=== PATIENT | male | born 1945 | race Caucasian/White ===

== ENCOUNTER 2019-01-12 15:29 | Inpatient (IN) | payer OTHER ==
[~2019-01-12] VITALS: Ht 180.3 cm; Wt 81.1 kg
--- NOTE | ~2019-01-12 | CON ---
[facility] [address] [place] [address] CONSULTATION Name: RODRIGUEZ HERNANDEZ Room: [address] IN [facility]#: [id number] Admission: 01/12/19 Attend Phys: Cee Garcia Discharge: 01/15/19 Date of : 41 Report #: [id number] THIS REPORT FOR: //name// CC: Massimo Dacosta DATE OF SERVICE: 01/14/2019 REQUESTING PHYSICIAN: Brenden Sosa MD REASON FOR CONSULTATION: Acute kidney injury. HISTORY OF PRESENT ILLNESS: The patient is a very pleasant 73-year-old gentleman presented to the hospital with complaints of having dry heaves, unable to eat and drink anything down for the last several days. In the Emergency Room, he was found to be hypotensive with blood pressure in 80s systolic. He also was found to be in acute kidney injury. His serum creatinine was 3.4. He was given IV fluids and creatinine is much better now down to 1.0 today. Serum sodium on admission was 131, it is 140 now, potassium is normal. His white count was 12.0, down to 9.9 thousands now. Urinalysis was unremarkable. PAST MEDICAL HISTORY: Significant for hypertension. MEDICATIONS: He is taking lisinopril at home. PAST SURGICAL HISTORY: Also, he has a history of prostate surgery, back problem and sinus surgery. FAMILY HISTORY: Noncontributory. SOCIAL HISTORY: He does not smoke cigarettes, does not drink alcohol. REVIEW OF SYSTEMS: Positive for being weak and he got dry heaves. Today, he feels much better. He is able to drink and keeping his food and drink down. He does not have any dysuria. No fever, no chills, no shortness of breath. He is not depressed. No change in visual or hearing acuity. Rest of systems reviewed and negative. PHYSICAL EXAMINATION: GENERAL: He is awake, alert, and oriented. VITAL SIGNS: Blood pressure now is 143/61, heart rate 63, afebrile. HEENT: Pupils are round. NECK: Supple. LUNGS: Clear. CARDIOVASCULAR: Regular rate. ABDOMEN: [place] [address] CONSULTATION Name: RODRIGUEZ HERNANDEZ Room: [address]#: [id number] Admission: 01/12/19 Attend Phys: Cee Garcia Discharge: 01/15/19 Date of : 41 Report #: [id number] LOWER EXTREMITIES: No edema. ASSESSMENT: 1. Acute kidney injury due to volume depletion. 2. History of hypertension. The patient was hypotensive on admission. 3. Dry heave, unable to keep fluids down, which resolved now. PLAN: The patient's renal function returning back to normal. From my standpoint, he is doing very well. I will sign off. By: [id number] rachael Virk
[~2019-01-12 15:29] MED LIST: AUGMENTIN; ENDOCET 10-3251 EACH PO; HYDROCODON-ACE1 EACH; KEFLEX500 MG; MOBIC7.5 M1 PO; PERCOCET 5-3251 EACH PO; PRILOSEC 10MG C10 M1; ROBAXIN 750 MG750 MG PO; ZESTRIL10 MG
[2019-01-12 15:30] VITALS: BP 116/54
[2019-01-12] MEDS ORDERED: ASPIR 8181 MG PO (15:41)
[2019-01-12 15:52] LABS: ABSOLUTE BASOPHILS 0.1 thou/uL (0.0-0.2); ABSOLUTE LYMPHOCYTES 2.2 thou/uL (0.8-5.3); ABSOLUTE MONOCYTES 0.7 thou/uL (0.0-1.2); BASOPHILS 0.6 %; EOSINOPHILS 0.4 %; HEMATOCRIT 40.5 % (42.0-52.0); HEMOGLOBIN 13.5 gm/dL (14.0-18.0); MCH 27.6 pg (26.0-34.0); MCHC 33.3 g/dL (28.0-37.0); MCV 82.9 fL (80.0-100.0); MPV 8.8 fl. (7.2-11.1); NUCLEATED RBCS 0 /100WBC; PLATELET COUNT* 240 thou/uL (150-400); RBC 4.89 mil/uL (4.50-6.00); RDW-CV 15.3 % (10.5-14.5)
[2019-01-12 16:00] LABS: CALCIUM 8.7 mg/dL (8.5-10.1); CREATININE 3.4 mg/dL (0.6-1.3)
[2019-01-12 16:01] LABS: POTASSIUM 2.9 mmol/L (3.5-5.1)
[2019-01-12 16:05] LABS: ALBUMIN 3.9 g/dL (3.4-5.0); TOTAL BILIRUBIN 0.8 mg/dL (<0.1-1.0); TOTAL PROTEIN 7.1 g/dL (6.4-8.2)
[2019-01-12 19:00] VITALS: BP 129/63
[2019-01-12 19:30] VITALS: BP 131/69
[2019-01-13] VITALS: BP 108/59
[2019-01-13 04:00] VITALS: BP 129/66
--- NOTE | 2019-01-13 06:12 | NUR ---
PATIENT ARRIVED ON FLOOR FROM ER A LITTLE BEFORE SHIFT. PATIENT ADMISSION HISTORY AND ASSESSMENT WAS COMPLETED CHARTED. IV FLUIDS ARE INFUSING AT 100 ML/HR. PATIENT WAS GIVEN TYLENOL ONCE FOR A HEADACHE. WILL CONTINUE TO MONITOR.
[2019-01-13 08:00] VITALS: BP 159/77
--- NOTE | 2019-01-13 10:53 | EKG ---
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 : 1945 Requested By: Meera Seth Order Number: [id number] Toño MD: Jose Guadalupe Lee Measurements Intervals [place] Rate: 78 P: 70 MO: 139 QRS: 16 QRSD: 103 T: 49 QT: 372 QTc: 424 Interpretive Statements Sinus rhythm Abnormal R-wave progression, early transition Baseline wander in lead(s) V1,V2 No previous ECG available for comparison Electronically Signed On 01-13-2019 10:53:36 CDT by Jose Guadalupe Lee [email or web address] <ELECTRONICALLY SIGNED> By: Jose Guadalupe Lee MD, [facility] 01/13/19 1053 [id number] [id number] Jose Guadalupe Lee MD, [facility] /EPI
[2019-01-13 11:30] VITALS: BP 138/63
--- NOTE | 2019-01-13 14:59 | NUR ---
I have reviewed the documentation by NOEMÍ ROBERTS from TODAY to 01/13/19 and I concur with it. MIRANDA MARSH
[2019-01-13 16:00] VITALS: BP 144/57
--- NOTE | 2019-01-13 16:30 | NUR ---
SW met with pt, pt , pt dtr and pt grandson. Pt alert, oriented. Pt talkative and provided information for assessment. Pt live at home with and pt said that pt usually takes care of her. Pt has all needed DME from , says that they have two of everything if pt were to need any DME at dc. No hx HH or SNF. Pt/pt unsure of any dc needs at this time. SW/CM to continue to follow to assist with safe dc planning.
[2019-01-13 18:12] LABS: URINE BILIRUBIN NEGATIVE (Negative); URINE BLOOD 1+ (Negative); URINE CLARITY CLEAR; URINE COLOR YELLOW; URINE GLUCOSE-RANDOM NEGATIVE (Negative); URINE KETONES NEGATIVE (Negative); URINE LEUKOCYTES-REFLEX NEGATIVE (Negative); URINE NITRITE-REFLEX NEGATIVE (Negative); URINE PROTEIN NEGATIVE (Negative); URINE UROBILINOGEN 0.2 E.U./dl (0.2-1.0)
[2019-01-13 18:20] LABS: BACTERIA-REFLEX None Seen /HPF (None Seen); CASTS None Seen /LPF (None Seen); CRYSTALS None Seen /LPF (None Seen); SQUAMOUS 0-3 Few /LPF (0-3); URINE RBC 0-2 Rare /HPF (0-2); URINE WBC-REFLEX None Seen /HPF (0-5)
--- NOTE | 2019-01-13 18:44 | NUR ---
VSS, ASSUMED CARE IN THE AM, ASSESSMENT PERFORMED AND CHARTED, FALL PRECAUTIONS IN PLACE AND CALL LIGHT IN REACH, PT IS A&O4 AND SR ON THE MONITOR, UP WITH AD BRYAN, HIS GOAL IS TAKE A SHOWER TODAY, WILL FOLLOW WITH PLAN OF CARE AND HOURLY ROUNDS
[2019-01-13 20:00] VITALS: BP 127/64
[2019-01-14] VITALS: BP 139/65
[2019-01-14 04:00] VITALS: BP 141/63
[2019-01-14 04:12] LABS: HEMATOCRIT 34.2 % (42.0-52.0); MCH 27.8 pg (26.0-34.0); MCHC 32.9 g/dL (28.0-37.0); MCV 84.5 fL (80.0-100.0); MPV 9.3 fl. (7.2-11.1); RBC 4.05 mil/uL (4.50-6.00); RDW-CV 15.4 % (10.5-14.5); WBC 9.9 thou/uL (4.0-11.0)
[2019-01-14 04:25] LABS: ALBUMIN 2.9 g/dL (3.4-5.0); CALCIUM 8.4 mg/dL (8.5-10.1); MAGNESIUM 1.6 mg/dL (1.8-2.4)
[2019-01-14 04:29] LABS: HEMOGLOBIN 11.3 gm/dL (14.0-18.0)
[2019-01-14 04:46] LABS: CREATININE 1.2 mg/dL (0.6-1.3)
[2019-01-14 07:20] LABS: URINE BILIRUBIN NEGATIVE (Negative); URINE BLOOD 1+ (Negative); URINE CLARITY CLEAR; URINE COLOR YELLOW; URINE GLUCOSE-RANDOM NEGATIVE (Negative); URINE KETONES NEGATIVE (Negative); URINE LEUKOCYTES-REFLEX NEGATIVE (Negative); URINE NITRITE-REFLEX NEGATIVE (Negative); URINE PROTEIN NEGATIVE (Negative); URINE UROBILINOGEN 0.2 E.U./dl (0.2-1.0)
[2019-01-14 07:29] LABS: BACTERIA-REFLEX 1-9 Few /HPF (None Seen); CASTS None Seen /LPF (None Seen); CRYSTALS None Seen /LPF (None Seen); MUCUS 0-3 Light strn/LPF (None Seen); SQUAMOUS 0-3 Few /LPF (0-3); URINE RBC 3-10 Few /HPF (0-2); URINE WBC-REFLEX 0-5 Rare /HPF (0-5)
[2019-01-14 08:00] VITALS: BP 144/67
--- NOTE | 2019-01-14 10:51 | NUR ---
ASSUMED PT CARE AT 0800, AOX4, UP AD RBYAN, O2 SAT 90'S RA. TRACING SINUS ROSY ON TELE. DENIES PAIN. PT FOR SPEECH THERAPY. LAST BM TODAY. IV ACCESS INTACT. VSS, AM ASSESSMENT CHARTED. MEDS GIVEN PER MAR. CALL LIGHT WITHIN REACH. WILL CONTINUE TO MONITOR.
[2019-01-14 12:46] VITALS: BP 143/61
[2019-01-14 13:04] LABS: CALCIUM 8.6 mg/dL (8.5-10.1); MAGNESIUM 1.5 mg/dL (1.8-2.4); POTASSIUM 4.3 mmol/L (3.5-5.1)
--- NOTE | 2019-01-14 14:18 | NUR ---
I have reviewed the documentation by NOEMÍ ROBERTS from TODAY to 01/14/19 and I concur with it. MIRANDA MARSH
[2019-01-14 16:00] VITALS: BP 167/69
[2019-01-15] VITALS: BP 172/78
[2019-01-15 04:00] VITALS: BP 136/65
[2019-01-15 04:42] LABS: HEMATOCRIT 33.8 % (42.0-52.0); HEMOGLOBIN 11.3 gm/dL (14.0-18.0); MCHC 33.3 g/dL (28.0-37.0); MPV 8.7 fl. (7.2-11.1); RBC 4.03 mil/uL (4.50-6.00); RDW-CV 15.4 % (10.5-14.5); WBC 11.5 thou/uL (4.0-11.0)
[2019-01-15 05:01] LABS: ALBUMIN 3.1 g/dL (3.4-5.0); CALCIUM 8.8 mg/dL (8.5-10.1); MAGNESIUM 1.4 mg/dL (1.8-2.4); PHOSPHORUS* 3.1 mg/dL (2.5-4.9); POTASSIUM 4.2 mmol/L (3.5-5.1)
[2019-01-15 05:04] LABS: CALCIUM 8.8 mg/dL (8.5-10.1); TOTAL BILIRUBIN 1.4 mg/dL (<0.1-1.0); TOTAL PROTEIN 5.6 g/dL (6.4-8.2)
[2019-01-15 07:20] VITALS: BP 130/65
[2019-01-15 11:48] VITALS: BP 127/99
--- NOTE | 2019-01-15 17:01 | NUR ---
CALLED IN RX FOR DR TOMAS FOR KEFLEX 500MGPO, 1 TAB QID FOR 7 DAYS TOTALING 28 TABLETS AND NORVASC 5MG PO QDAY FOR 30 DAY SUPPLY AT THIS TIME TO THE [facility] IN [place].
[2019-01-15] MEDS ORDERED: NORVASC5 MG PO (17:05)
[2019-01-15] MEDS ORDERED: KEFLEX500 M1 PO (17:06)
[2019-01-15 17:54] VITALS: BP 127/99
--- NOTE | 2019-01-15 18:52 | NUR ---
PT IV REMOVED INTACT, MAGNESIUM LAB 2.4 AT THIS TIME. PT TO DC TO HOME. PT AND VERBALIZED UNDERSTANDING TO DC INSTRUCTIONS AND MEDICATIONS. RX CALLED TO PHARMACY THIS SHIFT. NO CONCERNS NOTED AT THIS TIME. WILL CONTINUE TO MONITOR UNTIL PT RIDE ARRIVES AND PT IS TAKEN OUT OF THE BUILDING.
== END 2019-01-15 19:18 | disposition home or self-care (01) | DRG 314 ==
LOC: M.ERS 15:29 → M.TBA-ER 17:41 → M.2W 17:41 → M.ERS 19:00 → M.2W 19:21
PROVIDERS: Family Medicine; Personal Emergency Response Attendant; ADMIT Internal Medicine
DX: I95.9 Hypotension, unspecified (principal); N17.0 Acute kidney failure with tubular necrosis; E43 Unspecified severe protein-calorie malnutrition; J02.9 Acute pharyngitis, unspecified; I10 Essential (primary) hypertension; E86.9 Volume depletion, unspecified; E83.42 Hypomagnesemia; E83.39 Other disorders of phosphorus metabolism; D72.829 Elevated white blood cell count, unspecified; Z68.24 Body mass index [BMI] 24.0-24.9, adult; Z79.82 Long term (current) use of aspirin; Z79.899 Other long term (current) drug therapy

== ENCOUNTER → 2020-08-08 | Outpatient (CLI) | payer OTHER ==
[~2020-08-08] MED LIST changes: +ASPIR 8181 MG PO; +FLONASE 0.05%50 MCG NARES; +KEFLEX500 M1 PO; +NEURONTIN100 MG PO; +NORVASC5 MG PO; +OMEPRAZOLE40 MG PO; +ZANAFLEX4 M1 PO; +ZINC-22050 MG PO; +ZYRTEC10 M4 PO
--- NOTE | 2020-08-08 18:05 | CARDNUC ---
[place] [address] CARDIAC NUCLEAR IMAGING REPORT Name: RODRIGUEZ HERNANDEZ Cee Room: [facility]#: [id number] Admission: 08/08/20 Attend Phys: Jose Guadalupe Lee, Discharge: Date of : 41 Date of Service: 08/08/20 180 Report #: [id number] THIS REPORT FOR: cc: Massimo Barahona Steve T. DO List[place],Jose Guadalupe Gracia MD [facility] ~ APPROVED REPORT Study performed: 08/08/2020 14:01:51 Exam: Nuclear Stress Test Indication: Chest pain radiating to left arm, SINGH, Palpitations. Patient Location: Out-Patient Stress Tech: Taina Kam Stress Nurse: Linda Reich R.N. NM Tech:OPAL Bagley Ht: 6 ft 0 in Wt: 180 lbs BSA: 2.04 m2 BMI: 24.40 Medical History Medical History: Radiating chest pain to left arm, Dyspnea on exertion, palpitations, carotid bruit, HLD, HTN, past smoker, Family HX of CAD, HX back surgery, back and hip pain. Medications: Amlodipine, ASA 81 Mg. Allergies: Amoxil, Carvedilol, Duloxetine HCl. Cardiac Risk Factors: Age, DM, HTN, Hyperlipidemia, SOB, Past Smoker, carotid bruit. Previous Cardiac Procedures: None Pretest Chest Pain Characteristics: No chest pain Exercise History: Indeterminate Physical Disabilities: Back and hip pain, HX back surgery Meds Held (24 hrs): None Stress Test Details Stress Test: Pharmacologic stress testing performed using 0.4 mg of regadenoson per 5 mL given IV over 10 seconds. Reason for pharmacologic stress test: Back and hip pain, HX back surgery. HR Resting HR: 67 bpm Max Heart Rate (APMHR): 143 bpm Max HR Achieved: 98 bpm Target HR (85% APMHR): 121 bpm % of APMHR: [address] [place] [address] CARDIAC NUCLEAR IMAGING REPORT Name: RODRIGUEZ HERNANDEZ Room: [facility]#: [id number] Admission: 08/08/20 Attend Phys: Jose Guadalupe Lee, Discharge: Date of : 41 Date of Service: 08/08/20 1804 Report #: [id number] Recovery HR: 86 bpm BP Resting BP: 145/75 mmHg Max BP: 156/63 mmHg ECG Resting ECG: Sinus Rhythm Stress ECG: Sinus Rhythm ST Change: None Arrhythmia: None Recovery ECG: Sinus Rhythm Recovery ST Change: None Recovery Arrhythmia: None Clinical Reason for Termination: Completed protocol Stress Symptoms: Dyspnea, Abdominal pain. Exercise duration: 00 min 00 sec Exercise capacity: 1.00 METs The patient tolerated Lexiscan infusion without significant cardiac symptoms. Nurse Comments A 75 year old male presented for a sitting Lexiscan Nuclear Stress Test. Test well tolerated. Recovery unremarkable. Patient was stable and stated he felt good when escorted to Nuclear Medicine for imaging. Stress ECG Conclusion The baseline twelve-lead EKG shows sinus rhythm without significant ST segment or T wave abnormality. EKGs obtained during and post exercise show sinus rhythm with no significant ST segment or T wave changes when compared to baseline. There were no stress-induced arrhythmias. NM EXAM: Myocardial Perfusion REST/STRESS Imaging Protocol: Rest Tc-99m/Stress Tc-99m 1 day Resting Data Rest SPECT myocardial perfusion imaging was performed in supine position 30 minutes following the intravenous injection of 10.6 mCi of Tc-99m Sestamibi. Time of rest injection: 1250 Date: 08/08/2020 The images were gated to evaluate regional wall motion and calculate [place] [address] CARDIAC NUCLEAR IMAGING REPORT Name: RODRIGUEZ HERNANDEZ Room: [facility]#: [id number] Admission: 08/08/20 Attend Phys: Jose Guadalupe Lee, Discharge: Date of : 41 Date of Service: 08/08/20 1804 Report #: [id number] Administration Route: IV Administration Site: Right AC Pharmacologic Stress Pharmacologic stress test was performed by injecting Regadenoson 0.4 mg IV push followed by the intravenous injection of 32.2 mCi of Tc-99m Sestamibi. Time of stress injection: 1445 Date: 08/08/2020 Administration Route: IV Administration Site: Right AC Gated Stress SPECT was performed 40 minutes after stress injection. The images were gated to evaluate regional wall motion and calculate left ventricular ejection fraction. Prone imaging was performed. Study Quality Study: Good Artifact: Mild Diaphragmatic artifact Study Data Post stress, the left ventricular ejection was 73%.. TID = 0.78. Perfusion Perfusion images obtained at rest and post Lexiscan stress in the supine position show a moderate region of photopenia in the inferior wall that resolves completely with post-rest prone imaging consistent with diaphragmatic attenuation artifact. There were no other significant fixed or reversible defects identified. Post-rest prone imaging showed universal uptake of the radioisotope. Wall Motion Normal left ventricular wall motion. Nuclear Conclusion ECG Findings: negative for ischemia Clinical Findings: negative for ischemia Nuclear Findings: negative for ischemia Exercise Capacity: not assessed Left Ventricular Function: normal Risk Study: low Perfusion images show no defect to suggest infarct or ischemia. Left ventricular systolic function is normal on gated studies. [place] [address] CARDIAC NUCLEAR IMAGING REPORT Name: RODRIGUEZ HERNANDEZ Room: [facility]#: [id number] Admission: 08/08/20 Attend Phys: Jose Guadalupe Lee, Discharge: Date of : 41 Date of Service: 08/08/20 1804 Report #: [id number] <Conclusion> The baseline twelve-lead EKG shows sinus rhythm without significant ST segment or T wave abnormality. EKGs obtained during and post exercise show sinus rhythm with no significant ST segment or T wave changes when compared to baseline. There were no stress-induced arrhythmias. <ELECTRONICALLY SIGNED> By: Jose Guadalupe Lee MD, FACC 08/08/20 180 03 03 Jose Guadalupe Lee MD, FACC /INF
== END ==
LOC: M.NUC 06-27 16:05 → M.CRD 07-13 09:00 → M.NUC 07-13 10:00
PROVIDERS: ATTEND Internal Medicine Cardiovascular Disease
DX: I10 Essential (primary) hypertension (principal); R07.2 Precordial pain; E78.2 Mixed hyperlipidemia